=== PATIENT | male | born 1950 | race African-American/Black ===

== ENCOUNTER 2024-05-07 11:46 | Emergency (ER) | payer MEDICARE ==
[~2024-05-07] VITALS: Ht 188 cm; Wt 147.0 kg
[2024-05-07 11:57] VITALS: BP 163/61; TEMP 98.3; O2SAT 99
[2024-05-07 12:00] VITALS: PULSE 72; RESP 16; O2SAT 99
[2024-05-07] MEDS: BACITRACIN ZINC OINT UDPKT TOP ONE (14:30)
[2024-05-07] MEDS ORDERED: CEFEPIME 2GM IN DEXT 5% 100ML IV ONE (15:15)
[2024-05-07] MEDS: TETANUS, DIPHTHERIA, PERTUSSIS VAC/PF 0.5ML (>10YR OLD) IM ONE (15:32)
[2024-05-07] MEDS: LIDOCAINE HCL/PF 1% 10 MG/ML 5ML VIAL INFIL ONE (15:37)
[2024-05-07 16:07] LABS: BASOPHILS % 0.7 % (0.0-2.0); EOSINOPHILS % 1.4 % (0.0-5.0); HEMATOCRIT. 39.7 % (42.0-52.0); LYMPHOCYTES % 21.6 % (20.0-50.0); MEAN CORPUSCULAR HEMOGLOBIN 27.7 pg (28.0-32.0); MEAN CORPUSCULAR HGB CONC 32.6 g/dL (31.0-37.0); MEAN CORPUSCULAR VOLUME 84.9 fL (80.0-94.0); MONOCYTES % 7.3 % (2.0-8.0); PLATELET 163 x1000/uL (130-400); RED BLOOD CELL COUNT 4.68 mill/uL (4.7-6.1); RED CELL DISTRIBUTION WIDTH 15.2 % (11.6-14.6); WHITE BLOOD COUNT 6.3 x1000/uL (4.5-11.0)
[2024-05-07 16:14] LABS: CHLORIDE 108 mEq/L (98-107); POTASSIUM 3.8 mEq/L (3.5-5.1); SODIUM 141 mEq/L (136-145)
[2024-05-07 16:15] LABS: CALCIUM 9.2 mg/dL (8.7-10.4); CARBON DIOXIDE 26 mEq/L (21-32)
[2024-05-07 16:20] LABS: CREATININE 1.4 mg/dL (0.6-1.3); GLUCOSE 169 mg/dL (70-105); UREA NITROGEN BLOOD 21 mg/dL (9-23)
[2024-05-07] MEDS ORDERED: IBUP-2029 MT (17:01)
[2024-05-07] MEDS ORDERED: CEFP200T13 MT (17:01)
[2024-05-07] MEDS: CEFEPIME 2GM/50ML DUPLEX 50 ML IV NR (17:15)
[2024-05-07] MEDS: IBUPROFEN 600MG TABLET PO ONE (17:22)
== END 2024-05-07 18:42 | disposition home or self-care (01) ==
LOC: ER 12:25
DX: S61.411A Laceration without foreign body of right hand, initial encounter (principal); E11.9 Type 2 diabetes mellitus without complications; I10 Essential (primary) hypertension; W01.0XXA Fall on same level from slipping, tripping and stumbling without subsequent striking against object, initial encounter; Y93.89 Activity, other specified; Y92.89 Other specified places as the place of occurrence of the external cause; Y99.8 Other external cause status
CPT/HCPCS: 99284; 96365; 80048; 85025; 36415; 73130; 90715; 12002; 90471; J0692; J3490; 96372